=== PATIENT | female | born 1985 | race Caucasian/White ===

== ENCOUNTER 2018-03-18 12:37 | Emergency (ER) | payer SELFPAY ==
[2018-03-18 12:43] VITALS: BP 125/81
--- NOTE | 2018-03-18 12:59 | EDPHY ---
H & P Time Seen by Provider: 03/18/18 12:52 HPI/ROS: CHIEF COMPLAINT: Left knee pain HISTORY OF PRESENT ILLNESS: Patient is a 32-year-old female presents emergency department left knee pain. The patient was hiking yesterday when she stepped in a hole. She felt her left knee pop and felt severe pain. She is not sure if she injured her patellar actual knee. She now feels as though her knee is unstable. Her pain has continued. She describes it as severe. No numbness or tingling. No previous injury to her knee REVIEW OF SYSTEMS: My complete review of systems is negative except as mentioned in the HPI. Past Medical/Surgical History: Includes asthma, pyelonephritis Past surgical history: Gastric bypass, spinal surgery, diskectomy Social history: Patient is from [place]. Smoking Status: Never smoked Physical Exam: Vitals noted General Appearance: Alert and no distress. Head: Pupils equal. Normal. Respiratory: No respiratory distress. Cardiac: regular rate and rhythm. Extremities: Patient has mild bruising at the medial aspect of her left knee. There is no significant swelling. The patella appears in place. There is minor patellar tenderness. There is no lower leg swelling discoloration. Patient is neurovascularly intact distally. Skin: No rashes or lesions. Neuro: Alert. Normal mood and affect. Constitutional: Initial Vital Signs Temperature (C) 36.4 C 03/18/18 12:40 Heart Rate 97 03/18/18 12:40 Respiratory Rate 16 03/18/18 12:40 Blood Pressure 125/81 H 03/18/18 12:40 O2 Sat (%) 97 03/18/18 12:40 O2 Delivery Mode Room Air Allergies/Adverse Reactions: NSAIDS (Non-Steroidal Anti-Inflamma Allergy (Verified 03/18/18 12:39) Home Medications: Medication Instructions Recorded Hydrocodone/APAP 5/325 [[place] 1 - 2 tab PO Q4 #9 tab 03/18/18 5/325 (RX)] Tylenol 03/18/18 Medical Decision Making ED Course/Re-evaluation: In the emergency department I discussed possible etiologies with the patient. She requested pain medication. She was given ibuprofen and norco. X-ray of her left knee was ordered. Knee x-ray: Please refer the dictated report. No acute disease noted. Patient was given a knee immobilizer and crutches. The patient will be discharged from the emergency department with follow-up. She lives in [place]. She is given follow-up information in [place]. She also is aware she can follow up with an orthopedic physician in [place] Differential Diagnosis: My differential includes but is not limited to fracture, patellar dislocation, knee dislocation, vascular injury - Data Points Medications Given: Discontinued Medications Hydrocodone Bitart/Acetaminophen ([place] 5/325) 1 tab PO EDNOW ONE Stop: 03/18/18 13:15 Last Admin: 03/18/18 13:17 Dose: 1 tab Ibuprofen (Motrin) 600 mg PO EDNOW ONE Stop: 03/18/18 13:01 Last Admin: 03/18/18 13:12 Dose: Not Given Departure - Departure Disposition: Home, Routine, Self-Care Clinical Impression: Knee injury Qualifiers: Encounter type: initial encounter Laterality: left Qualified Code(s): S89.92XA - Unspecified injury of left lower leg, initial encounter Condition: Good Instructions: Knee Pain (ED), Knee Immobilizer (ED) Additional Instructions: Your x-ray was negative. You need close follow-up with Orthopedics. They will need to re-evaluate the knee. Keep your knee immobilizer in place and use your crutches until follow-up. Referrals: [facility] [[facility] for Call Sched] - As per Instructions Prescriptions: Hydrocodone/APAP 5/325 [[place] 5/325 (RX)] 1 - 2 tab PO Q4 #9 tab
[2018-03-18] MEDS ORDERED: IBUPROFEN 600 MG TAB PO ONE (13:00)
[2018-03-18] MEDS ORDERED: HYDROCODONE/APAP 5/325 TAB PO ONE (13:14)
== END 2018-03-18 14:14 | disposition home or self-care (01) ==
DX: S89.92XA Unspecified injury of left lower leg, initial encounter (principal); J45.909 Unspecified asthma, uncomplicated; X50.9XXA Other and unspecified overexertion or strenuous movements or postures, initial encounter; Y99.8 Other external cause status; Y93.01 Activity, walking, marching and hiking
CPT/HCPCS: L1830